=== PATIENT | female | born 1990 ===

== ENCOUNTER 2024-11-04 14:38 | Outpatient (CLI) | payer OTHER | END 2024-11-04 14:39 | disposition home or self-care (01) | LOC: PRENATAL 14:38 | PROVIDERS: ATTEND Obstetrics & Gynecology Maternal & Fetal Medicine | DX: O44.00 Complete placenta previa NOS or without hemorrhage, unspecified trimester (principal); O36.8199 Decreased fetal movements, unspecified trimester, other fetus; Z3A.34 34 weeks gestation of pregnancy ==